=== PATIENT | male | born 1960 | race Caucasian/White ===

== ENCOUNTER 2016-12-17 19:33 | Emergency (ER) | payer MEDICAID ==
[~2016-12-17] VITALS: Ht 185.4 cm; Wt 84.1 kg
[~2016-12-17 19:33] MED LIST: BP MED UNKNOWN
[2016-12-17 19:42] VITALS: BP 142/78
== END 2016-12-17 20:35 | disposition home or self-care (01) ==
LOC: ED 20:29
DX: S39.012A Strain of muscle, fascia and tendon of lower back, initial encounter (principal); X50.3XXA Overexertion from repetitive movements, initial encounter; X50.9XXA Other and unspecified overexertion or strenuous movements or postures, initial encounter; Y93.89 Activity, other specified; Y92.69 Other specified industrial and construction area as the place of occurrence of the external cause; Y99.9 Unspecified external cause status
CPT/HCPCS: 99283

== ENCOUNTER 2017-01-09 12:56 | Emergency (ER) | payer MEDICAID ==
[~2017-01-09] VITALS: Ht 193 cm; Wt 81.1 kg
[2017-01-09 13:10] VITALS: BP 155/82
[2017-01-09] MEDS ORDERED: ENAL2.5T PO (13:34)
== END 2017-01-09 15:00 | disposition home or self-care (01) ==
LOC: ED 14:54
DX: S80.211A Abrasion, right knee, initial encounter (principal); S00.81XA Abrasion of other part of head, initial encounter; S00.212A Abrasion of left eyelid and periocular area, initial encounter; L01.01 Non-bullous impetigo; L03.115 Cellulitis of right lower limb; E11.9 Type 2 diabetes mellitus without complications; I10 Essential (primary) hypertension; X58.XXXA Exposure to other specified factors, initial encounter; Y93.89 Activity, other specified; Y92.009 Unspecified place in unspecified non-institutional (private) residence as the place of occurrence of the external cause; Y99.8 Other external cause status
CPT/HCPCS: 99283

== ENCOUNTER 2017-02-21 12:54 | Emergency (ER) | payer SELFPAY ==
[~2017-02-21] VITALS: Ht 193 cm; Wt 85.7 kg
[~2017-02-21 12:54] MED LIST changes: +ENAL2.5T PO
[2017-02-21 12:55] VITALS: BP 155/95
== END 2017-02-21 13:35 | disposition home or self-care (01) ==
LOC: ED 13:29
DX: I10 Essential (primary) hypertension (principal); E11.9 Type 2 diabetes mellitus without complications
CPT/HCPCS: 99283

== ENCOUNTER 2017-05-29 18:28 | Emergency (ER) | payer SELFPAY ==
[~2017-05-29] VITALS: Ht 193 cm; Wt 85.0 kg
[2017-05-29 19:06] VITALS: BP 159/91
[2017-05-29] MEDS ORDERED: CEPHALEXIN 500 MG CAPSULE PO STA (19:18)
[2017-05-29] MEDS ORDERED: SULFAMETH./TRIMETHOPRIM DS 800MG/160MG TABLET ONE (19:23)
[2017-05-29] MEDS ORDERED: CEPHALEXIN 500 MG CAPSULE ONE (19:23)
[2017-05-29] MEDS ORDERED: DIPH,PERTUSS(ACELL),TET VAC/PF 0.5 ML IM-VACC ONE ×2 (19:23→19:30)
[2017-05-29] MEDS ORDERED: BACITRACIN ZINC OINT 500U/GM, 0.9 GM ONE (19:30)
[2017-05-29] MEDS ORDERED: SULFAMETH./TRIMETHOPRIM DS 800MG/160MG TABLET PO ONE (19:30)
== END 2017-05-29 19:42 | disposition home or self-care (01) ==
LOC: ED 19:30
DX: L03.313 Cellulitis of chest wall (principal); Z76.0 Encounter for issue of repeat prescription; I10 Essential (primary) hypertension
CPT/HCPCS: 90471; 90715

== ENCOUNTER 2017-07-28 07:44 | Emergency (ER) | payer SELFPAY ==
[~2017-07-28] VITALS: Ht 193 cm; Wt 88.9 kg
[2017-07-28 07:46] VITALS: BP 154/98
[2017-07-28] MEDS ORDERED: MUPIROCIN OINT 2%, 22GM TP ONE (08:14)
== END 2017-07-28 08:54 | disposition home or self-care (01) ==
LOC: ED 08:00
DX: L01.01 Non-bullous impetigo (principal); L02.01 Cutaneous abscess of face; I10 Essential (primary) hypertension; E11.9 Type 2 diabetes mellitus without complications
CPT/HCPCS: 99282

== ENCOUNTER 2018-04-01 13:17 | Emergency (ER) | payer BC, MEDICAID ==
[~2018-04-01] VITALS: Ht 193 cm; Wt 91.4 kg
[2018-04-01 13:49] VITALS: BP 156/91
[2018-04-01] MEDS ORDERED: ACETAMINOPHEN 500 MG TABLET ONE (14:15)
[2018-04-01] MEDS ORDERED: ACETAMINOPHEN 500 MG TABLET PO ONE (14:30)
[2018-04-01 15:36] LABS: CULTURE INDICATED? YES; MICROSCOPIC INDICATED
[2018-04-01] MEDS ORDERED: BACITRACIN ZINC OINT 500U/GM, 0.9 GM ONE (15:55)
== END 2018-04-01 16:02 | disposition home or self-care (01) ==
LOC: ED 15:56
DX: L01.01 Non-bullous impetigo (principal)
CPT/HCPCS: 71045; 81001; 87086; 99285

== ENCOUNTER 2018-04-29 11:07 | Emergency (ER) | payer MEDICAID ==
[~2018-04-29] VITALS: Ht 182.9 cm; Wt 91.0 kg
[2018-04-29 11:21] VITALS: BP 153/90
== END 2018-04-29 12:11 | disposition home or self-care (01) ==
LOC: ED 12:05
DX: L01.01 Non-bullous impetigo (principal); E11.9 Type 2 diabetes mellitus without complications; I10 Essential (primary) hypertension; F17.200 Nicotine dependence, unspecified, uncomplicated
CPT/HCPCS: 99283

== ENCOUNTER 2019-03-18 18:21 | Emergency (ER) | payer SELFPAY ==
[~2019-03-18] VITALS: Ht 193 cm; Wt 99.1 kg
[2019-03-18 18:41] VITALS: BP 166/102
--- NOTE | 2019-03-18 18:41 | NUR ---
PT HERE TODAY STATING HE BELIEVES HIS BP IS HIGH BECAUSE HE HASN'T TAKEN HIS BP MEDICINE RECENTLY. STATES HE LAST TOOK IT 3 MONTHS AGO BECAUSE HE RAN OUT. PT DENIES SOB, CP, DIZZINESS, AND LIGHTHEADEDNESS. LISAN. BP 166/102 AT THIS TIME. MEDICAL STUDENT WAS AT BEDSIDE ASSESSING PT AND UPDATING HIM ON POC. PT RESTING ON [facility]. CALL LIGHT IN REACH.
[2019-03-18] MEDS ORDERED: AMLODIPINE 5 MG TABLET PO ONE (19:00)
[2019-03-18] MEDS ORDERED: LISINOPRIL 20 MG TABLET PO ONE (19:00)
--- NOTE | 2019-03-18 19:01 | NUR ---
REPORT GIVEN TO INES OSBORNE
[2019-03-18] MEDS ORDERED: AMLODIPINE 5 MG TABLET ONE (19:14)
[2019-03-18] MEDS ORDERED: LISINOPRIL 20 MG TABLET ONE (19:14)
== END 2019-03-18 19:39 | disposition home or self-care (01) ==
LOC: ED 19:00
DX: I10 Essential (primary) hypertension (principal); E11.9 Type 2 diabetes mellitus without complications
CPT/HCPCS: 99283

== ENCOUNTER 2019-08-14 06:09 | Emergency (ER) | payer MEDICAID ==
[~2019-08-14] VITALS: Ht 193 cm; Wt 97.9 kg
[2019-08-14 06:12] VITALS: BP 189/111
== END 2019-08-14 07:05 | disposition home or self-care (01) ==
LOC: ED 06:59
DX: I10 Essential (primary) hypertension (principal); L01.01 Non-bullous impetigo; Z76.0 Encounter for issue of repeat prescription
CPT/HCPCS: 99283

== ENCOUNTER 2019-09-07 19:16 | Emergency (ER) | payer MEDICAID ==
[~2019-09-07] VITALS: Ht 193 cm; Wt 96.1 kg
[2019-09-07 19:18] VITALS: BP 160/101
== END 2019-09-07 19:56 | disposition home or self-care (01) ==
LOC: ED 19:50
DX: I10 Essential (primary) hypertension (principal); Z76.0 Encounter for issue of repeat prescription
CPT/HCPCS: 99283

== ENCOUNTER 2019-09-25 10:47 | Emergency (ER) | payer MEDICAID ==
[~2019-09-25] VITALS: Ht 193 cm; Wt 95.0 kg
[2019-09-25 11:05] VITALS: BP 155/99
--- NOTE | 2019-09-25 13:15 | NUR ---
NO ANSWER TO LOBBY CALL X1
--- NOTE | 2019-09-25 13:20 | NUR ---
NO ANSWER TO LOBBY CALL X2
--- NOTE | 2019-09-25 13:28 | NUR ---
NO ANSWER TO LOBBY CALL X3-MANAGER FIELD MADE AWARE
== END 2019-09-25 13:36 | disposition left against medical advice (07) ==
LOC: ED 13:15
DX: M25.562 Pain in left knee (principal)
CPT/HCPCS: 99283

== ENCOUNTER 2019-09-25 18:50 | Emergency (ER) | payer MEDICAID ==
[~2019-09-25] VITALS: Ht 193 cm; Wt 96.7 kg
[2019-09-25 18:53] VITALS: BP 165/102
--- NOTE | 2019-09-25 19:11 | NUR ---
PT HERE WITH C/O LEFT KNEE PAIN, STATES HE TWISTED IT AND "IT HAS HURT EVER SINCE."
[2019-09-25] MEDS ORDERED: KETOROLAC 30 MG/1 ML ONE (19:18)
--- NOTE | 2019-09-25 19:20 | NUR ---
pt medicated per order.
[2019-09-25] MEDS ORDERED: KETOROLAC 30 MG/1 ML IM ONE (19:30)
--- NOTE | 2019-09-25 19:43 | NUR ---
Patient/Caregiver given discharge instructions and they have confirmed that they understand the instructions. Patient ambulatory with steady gait.
== END 2019-09-25 19:45 | disposition home or self-care (01) ==
LOC: ED 19:25
DX: M17.12 Unilateral primary osteoarthritis, left knee (principal); Z76.0 Encounter for issue of repeat prescription; I10 Essential (primary) hypertension
CPT/HCPCS: 96372; 99283; J1885

== ENCOUNTER 2020-03-10 19:11 | Emergency (ER) | payer MEDICAID ==
[~2020-03-10] VITALS: Ht 193 cm; Wt 95.3 kg
[2020-03-10 19:16] VITALS: BP 185/117
--- NOTE | 2020-03-10 19:32 | NUR ---
FIRST CONTACT WITH PT: PT LAYING IN STEVEN, APPEARS COMFORTABLE. STATES HE CAME IN FOR A BP MEDICATION REFILL. SAYS "I HAD AN APPOINTMENT AT [facility] BUT MISSED IT BECAUSE I WAS OUT OF TOWN WORKING AND IT WAS GOING TO TAKE TOO LONG TO GET BACK IN." PT STATES "I NO IT GETS REALLY HIGH WHEN I AM NOT TAKING THEM". PT DENIES ANY PANDYA, DIZZINESS OR ABNORMALITIES. DENIES WEAKNESS. GROSS NEURO INTACT. WCTM. PT PLACED ON SPO2, BP MONITORING. BP 184/104 IN ROOM. WAITING FOR MD FORD.
--- NOTE | 2020-03-10 19:38 | NUR ---
PT STATES HE TAKES ENALAPRIL AND ANOTHER BP MED WITH A K.
--- NOTE | 2020-03-10 19:58 | NUR ---
Patient given discharge instructions and they have confirmed that they understand the instructions. Patient ambulatory with steady gait. DENIES ADDITIONAL QUESTIONS OR NEEDS AT THIS TIME. NAD, P/W/D. NO BELONGINGS LEFT IN ROOM AT TIME OF DC.
== END 2020-03-10 20:00 | disposition home or self-care (01) ==
LOC: ED 19:19
DX: I11.9 Hypertensive heart disease without heart failure (principal); I45.4 Nonspecific intraventricular block; Z76.0 Encounter for issue of repeat prescription
CPT/HCPCS: 93005; 99283

== ENCOUNTER 2020-05-01 14:59 | Emergency (ER) | payer MEDICAID ==
[~2020-05-01] VITALS: Ht 193 cm; Wt 93.6 kg
[~2020-05-01 14:59] MED LIST changes: -ENAL2.5T PO; +ENAL2.5T8 PO
--- NOTE | 2020-05-01 15:25 | NUR ---
Patient given discharge instructions and they have confirmed that they understand the instructions. Patient ambulatory with steady gait.
== END 2020-05-01 15:26 | disposition home or self-care (01) ==
LOC: ED 15:05
DX: I10 Essential (primary) hypertension (principal)
CPT/HCPCS: 99283

== ENCOUNTER 2020-07-10 17:38 | Emergency (ER) | payer MEDICAID ==
[~2020-07-10] VITALS: Ht 193 cm; Wt 97.7 kg
--- NOTE | 2020-07-10 19:00 | NUR ---
PT AMBUALTORY TO ROOM. NAD NOTED. PT TO ED FOR HTN RX REFILL. REPORTEDLY HAS NOT TAKEN ANTIHYPERTENSIVES IN "WEEKS". PT HYPERTENSIVE UPON ARRIVAL TO ED. DENIES CP/PANDYA/FLANK PAIN/HEMATURIA.
[2020-07-10] MEDS ORDERED: ENALAPRIL 10 MG TABLET PO STA (19:34)
[2020-07-10 19:39] VITALS: BP 192/111
== END 2020-07-10 20:08 | disposition home or self-care (01) ==
LOC: ED 19:22
DX: I10 Essential (primary) hypertension (principal); Z76.0 Encounter for issue of repeat prescription
CPT/HCPCS: 99283

== ENCOUNTER 2020-08-13 14:14 | Emergency (ER) | payer MEDICAID ==
[~2020-08-13] VITALS: Ht 185.4 cm; Wt 96.3 kg
[2020-08-13] MEDS ORDERED: AMLODIPINE 5 MG TABLET PO ONE (15:00)
[2020-08-13] MEDS ORDERED: AMLODIPINE 5 MG TABLET ONE (15:26)
--- NOTE | 2020-08-13 15:31 | NUR ---
TASK RN: GILBERT MEDINA FROM PHARMACY.
[2020-08-13] MEDS ORDERED: RAMIPRIL 5 MG CAP PO ONE (16:00)
--- NOTE | 2020-08-13 16:05 | NUR ---
TASK RN: MED ARRIVED FROM PHARMACY, PT MEDICATED PER EMAR. PT STILL HYPERTENSIVE, OTHER VS WDL.
[2020-08-13 16:14] VITALS: BP 182/97
--- NOTE | 2020-08-13 16:15 | NUR ---
patient resting on bed with eyes closed, following blood pressure 182/97
[2020-08-14] MEDS ORDERED: RAMIPRIL 5 MG CAP PO SCH (09:00)
== END 2020-08-13 16:59 | disposition home or self-care (01) ==
LOC: ED 14:41
DX: I10 Essential (primary) hypertension (principal); Z76.0 Encounter for issue of repeat prescription
CPT/HCPCS: 99283

== ENCOUNTER 2021-03-19 16:42 | Emergency (ER) | payer MEDICAID ==
[~2021-03-19] VITALS: Ht 193 cm; Wt 90.9 kg
[2021-03-19 16:45] VITALS: BP 146/87
--- NOTE | 2021-03-19 17:47 | NUR ---
EMBOSSING TOOL SETTER: PT AMBULATORY TO ROOM FROM LOBBY.
--- NOTE | 2021-03-19 18:59 | NUR ---
MD PROVIDED SCRIPT FOR PTS MEDICATION AND PT INFORMED TO FOLLOW UP WITH THE [facility], PT AGREEABLE TO POC
== END 2021-03-19 19:09 | disposition home or self-care (01) ==
LOC: ED 18:50
DX: I10 Essential (primary) hypertension (principal); Z76.0 Encounter for issue of repeat prescription; Z72.9 Problem related to lifestyle, unspecified
CPT/HCPCS: 99281

== ENCOUNTER 2021-03-24 17:39 | Emergency (ER) | payer MEDICAID ==
[~2021-03-24] VITALS: Ht 193 cm; Wt 90.4 kg
--- NOTE | 2021-03-24 17:52 | NUR ---
PER EMS PT HAD VOMIT ON HIS SHIRT AND AROUND HIM ON THE GROUND. PT BG 78 PER EMS. PLACED PT ON O2 VIA NC 4 LPM CARD SORTER BY EMS. NO OTHER INTERVENTIONS.
--- NOTE | 2021-03-24 17:52 | NUR ---
PT BIB EMS DUE TO ALOC. BYSTANDER CALLED 911 AFTER NOTICING PT LAYING ON THE GROUND BEHIND A RESIDENCE. PT A&O X 2, CONFUSED ABOUT TIME AND PLACE. PT UNSURE IF HE DRANK ALCOHOL TODAY OR HAD ANY DRUGS. PT HAS A HX OF BOTH. THE PT'S LAST CLEAR MEMORY IS GETTING FOOD FROM THE FOOD BANK. PT DENIES ANY PAIN AT THIS TIME. SCABBED SCRAPES NOTED TO PT'S SHINS, BUT NO OTHER TRAUMA OBSERVED CURRENTLY. PT ROOM SP02 86%. PT PLACED ON O2 VIA NC 3LPM AND O2 AT 92%.
[2021-03-24] MEDS ORDERED: ONDANSETRON ODT 4 MG PO ONE (18:00)
[2021-03-24] MEDS ORDERED: ONDANSETRON ODT 4 MG ONE (18:07)
--- NOTE | 2021-03-24 18:14 | NUR ---
COVID SWAB COLLECTED AND TAKEN TO LAB. ZOFRAN ADMIN PER OCT. PT CONNECTED TO MONITORING. CALL LIGHT IN REACH. FALL PRECAUTIONS IN PLACE.
[2021-03-24 18:22] LABS: BASOPHILS % (AUTO) 1 % (0-1); EOSINOPHILS % (AUTO) 2 % (1-7); LYMPHOCYTES % (AUTO) 17 % (22-44); MEAN CORPUSCULAR HEMOGLOBIN 29.7 pg (27.5-34.5); MEAN CORPUSCULAR HGB CONC 33.3 g/dL (33.2-36.2); MEAN PLATELET VOLUME 9.4 fL (7.4-10.4); MONOCYTES % (AUTO) 9 % (2-9); NEUTROPHILS % (AUTO) 71 % (42-75); PLATELET COUNT 275 x10^3/uL (130-400); RED BLOOD COUNT 4.54 x10^6/uL (4.38-5.82); RED CELL DISTRIBUTION WIDTH 13.8 % (9.4-14.8)
[2021-03-24 18:28] LABS: ALANINE AMINOTRANSFERASE 77 U/L (12-78); ALBUMIN 2.9 g/dL (3.4-5.0); ANION GAP 5 mmol/L (5-15); CALCIUM 8.9 mg/dL (8.5-10.1); CHLORIDE 106 mmol/L (98-107)
[2021-03-24 18:31] LABS: ALKALINE PHOSPHATASE 93 U/L (45-117); BILIRUBIN,TOTAL 0.7 mg/dL (0.2-1.0); CREATININE 0.88 mg/dL (0.7-1.3); TOTAL PROTEIN 7.1 g/dL (6.4-8.2)
--- NOTE | 2021-03-24 18:51 | NUR ---
PT SLEEPING ON GURNEY. RESP EVEN AND UNLABORED. OXYGEN 3L NC STILL IN PLACE. PT CONNECTED TO MONITORING. CALL LIGHT IN REACH.
--- NOTE | 2021-03-24 19:51 | NUR ---
PT A&O X4. PT NOT SURE WHY HE WAS AT THAT RESIDENCE, PT HAS BEEN WORKING ALOT LATELY. RECREACTIONAL DRUG USE, NOT RECENTLY. PT STILL CONNECTED TO MONITORING. CALL LIGHT IN REACH. PT OXYGEN 94% RA. OXYGEN REMOVED.
--- NOTE | 2021-03-24 20:05 | NUR ---
REPORT GIVEN TO SAURAV CHACON.
[2021-03-24 21:33] VITALS: BP 139/81
--- NOTE | 2021-03-24 21:34 | NUR ---
TASK RN: Patient given discharge instructions and they have confirmed that they understand the instructions. Patient ambulatory with steady gait. NAD, all questions answered appropriately, denies additional needs at this time. No personal belongings left in room after discharge.
== END 2021-03-24 21:47 | disposition home or self-care (01) ==
LOC: ED 18:13
DX: R11.2 Nausea with vomiting, unspecified (principal); Z20.822 Contact with and (suspected) exposure to COVID-19; G92 Toxic encephalopathy; R73.9 Hyperglycemia, unspecified; R41.82 Altered mental status, unspecified; R06.02 Shortness of breath; I10 Essential (primary) hypertension
CPT/HCPCS: 36415; 70450; 71045; 80053; 80320; 84145; 85025; 93005; 99285; Q0162; U0003; U0005; G0480

== ENCOUNTER 2021-04-07 17:36 | Emergency (ER) | payer MEDICAID ==
[~2021-04-07] VITALS: Ht 193 cm; Wt 93.0 kg
[2021-04-07 18:07] VITALS: BP 180/103
--- NOTE | 2021-04-07 18:22 | NUR ---
PT walked back from triage for rx refill- needs bp medication 167/102
--- NOTE | 2021-04-07 18:51 | NUR ---
BEDSIDE REPORT FROM ROSI CHACONMACHINE BURRER OF CARE AT THIS TIME
--- NOTE | 2021-04-07 19:26 | NUR ---
Patient/Caregiver given discharge instructions and they have confirmed that they understand the instructions. Patient ambulatory with steady gait. NAD, all questions answered appropriately, denies additional needs at this time. No personal belongings left in room after discharge.
== END 2021-04-07 19:30 | disposition home or self-care (01) ==
LOC: ED 18:00
DX: I10 Essential (primary) hypertension (principal); Z76.0 Encounter for issue of repeat prescription
CPT/HCPCS: 99281